=== PATIENT | female | born 1960 | race Caucasian/White ===

== ENCOUNTER 2021-12-16 16:00 | Inpatient (IN) | payer OTHER ==
[2021-12-16 16:22] VITALS: RESP 18; BMI 22.8
[2021-12-16] MEDS ORDERED: ACETAMINOPHEN 1000 MG/100 ML BAG IVPB ONE (16:46)
[2021-12-16] MEDS ORDERED: LORazepam 2 MG/ML SDV VIAL IVPUSH ONE (16:46)
[2021-12-16] MEDS ORDERED: ACETAMINOPHEN INJECTION 100 ML IVPB ONE (17:04)
[2021-12-16] MEDS ORDERED: FOLIC ACID INJECTION - 1 MG, THIAMINE HCL 100 MG, MULTIVIT INJECTION ADULT 10 ML in SOD... IVPB ONE ×2 (17:09→22:27)
[2021-12-16 17:16] LABS: BASO % 0.7 % (0-2.0); EOS % 1.1 % (0-4.5); HEMOGLOBIN 12.8 GM/dL (10.7-15.3); LYMPH % 26.4 % (8-40); MCH 31.7 pg (25.7-33.7); MCHC 33.6 g/dl (32.0-36.0); MEAN CELL VOLUME 94.4 fl (80-96); MEAN PLT VOLUME 7.2 fl (7.5-11.1); NEUT % 62.8 % (42.8-82.8); PLATELET COUNT 203 10^3/uL (134-434); RBC 4.02 M/mm3 (3.60-5.2); RDW 13.5 % (11.6-15.6); WHITE BLOOD COUNT 6.1 K/mm3 (4.0-10.0)
[2021-12-16 17:35] LABS: CHLORIDE 103 mmol/L (98-107); SODIUM 140 mmol/L (136-145)
[2021-12-16 17:38] LABS: CALCIUM 9.2 mg/dL (8.5-10.1)
[2021-12-16 17:39] LABS: ALBUMIN 3.6 g/dl (3.4-5.0); ANION GAP 4 MMOL/L (8-16); BLOOD UREA NITROGEN 8.7 mg/dL (7-18); CO2 34 mmol/L (21-32); GLUCOSE,RANDOM 77 mg/dL (74-106)
[2021-12-16 17:42] LABS: CREATININE 0.6 mg/dL (0.55-1.3); SGOT/AST 27 U/L (15-37); SGPT/ALT 34 U/L (13-61)
[2021-12-16 17:43] LABS: BILIRUBIN,TOTAL 0.3 mg/dL (0.2-1); TOT PROT 6.7 g/dl (6.4-8.2)
[2021-12-16 17:45] LABS: ALK PHOS 66 U/L (45-117)
[2021-12-16 21:03] LABS: MAGNESIUM 2.2 mg/dL (1.8-2.4)
[2021-12-16 21:06] LABS: PHOSPHOROUS 2.8 mg/dL (2.5-4.9)
[2021-12-16] MEDS ORDERED: LORazepam 1 MG TABLET PO PRN (22:25)
[2021-12-16] MEDS ORDERED: cloNIDine HCL 0.1 MG TABLET ONE (23:08)
[2021-12-16] MEDS ORDERED: LORazepam 1 MG TABLET ONE (23:09)
[2021-12-16] MEDS: LORazepam 1 MG TABLET PO SCH (23:11)
[2021-12-16] MEDS: cloNIDine HCL 0.1 MG TABLET PO SCH (23:11)
[2021-12-17] MEDS: DEXTROSE 5%-NORMAL SALINE 1,000 ML IV SCH (04:56)
[2021-12-17] MEDS: LORazepam 1 MG TABLET PO SCH ×4 (04:57→22:17)
[2021-12-17] MEDS ORDERED: DEXTROSE 5%-NORMAL SALINE 1,000 ML IV SCH (06:00)
[2021-12-17] MEDS: cloNIDine HCL 0.1 MG TABLET PO SCH ×3 (06:06→22:17)
[2021-12-17 09:54] LABS: BASO % 0.9 % (0-2.0); EOS % 1.7 % (0-4.5); HEMOGLOBIN 13.4 GM/dL (10.7-15.3); LYMPH % 32.1 % (8-40); MCHC 32.7 g/dl (32.0-36.0); MEAN CELL VOLUME 94.9 fl (80-96); MEAN PLT VOLUME 7.5 fl (7.5-11.1); MONO % 6.8 % (3.8-10.2); NEUT % 58.5 % (42.8-82.8); PLATELET COUNT 212 10^3/uL (134-434); RBC 4.32 M/mm3 (3.60-5.2); RDW 13.6 % (11.6-15.6); WHITE BLOOD COUNT 5.6 K/mm3 (4.0-10.0)
[2021-12-17 10:24] LABS: ALBUMIN 3.1 g/dl (3.4-5.0); MAGNESIUM 2.1 mg/dL (1.8-2.4)
[2021-12-17 10:27] LABS: CREATININE 0.6 mg/dL (0.55-1.3)
[2021-12-17 10:28] LABS: BILIRUBIN,TOTAL 0.4 mg/dL (0.2-1); TOT PROT 5.9 g/dl (6.4-8.2)
[2021-12-17] MEDS: THIAMINE HCL 200 MG/2 ML VIAL IVPB SCH (10:35)
[2021-12-17] MEDS: FOLIC ACID 1 MG TABLET (FP) PO SCH (10:36)
[2021-12-17] MEDS: ENOXAPARIN NA (PORCINE) 40 MG/0.4 ML DISP.SYRIN SQ SCH (10:38)
[2021-12-18] MEDS: DEXTROSE 5%-NORMAL SALINE 1,000 ML IV SCH ×2 (05:20→06:39)
[2021-12-18] MEDS: LORazepam 1 MG TABLET PO SCH ×4 (05:22→22:32)
[2021-12-18] MEDS: cloNIDine HCL 0.1 MG TABLET PO SCH ×3 (06:26→23:07)
[2021-12-18] MEDS: FOLIC ACID 1 MG TABLET (FP) PO SCH (10:09)
[2021-12-18] MEDS: ENOXAPARIN NA (PORCINE) 40 MG/0.4 ML DISP.SYRIN SQ SCH (10:09)
[2021-12-18] MEDS: THIAMINE HCL 200 MG/2 ML VIAL IVPB SCH (10:12)
[2021-12-19] MEDS ORDERED: LORazepam 0.5 MG TABLET PO PRN
[2021-12-19] MEDS: DEXTROSE 5%-NORMAL SALINE 1,000 ML IV SCH ×2 (04:06→05:05)
[2021-12-19] MEDS: LORazepam 0.5 MG TABLET PO SCH ×4 (05:01→22:12)
[2021-12-19] MEDS: cloNIDine HCL 0.1 MG TABLET PO SCH ×3 (06:12→22:12)
[2021-12-19] MEDS: FOLIC ACID 1 MG TABLET (FP) PO SCH (09:17)
[2021-12-19] MEDS: ENOXAPARIN NA (PORCINE) 40 MG/0.4 ML DISP.SYRIN SQ SCH (09:17)
[2021-12-19] MEDS: THIAMINE HCL 200 MG/2 ML VIAL IVPB SCH (09:18)
[2021-12-19 10:32] LABS: HEMATOCRIT 41.4 % (32.4-45.2); HEMOGLOBIN 13.8 GM/dL (10.7-15.3); MCH 31.3 pg (25.7-33.7); MCHC 33.2 g/dl (32.0-36.0); MEAN CELL VOLUME 94.3 fl (80-96); MEAN PLT VOLUME 7.6 fl (7.5-11.1); PLATELET COUNT 236 10^3/uL (134-434); RBC 4.39 M/mm3 (3.60-5.2); RDW 13.4 % (11.6-15.6); WHITE BLOOD COUNT 7.3 K/mm3 (4.0-10.0)
[2021-12-19 10:52] LABS: CHLORIDE 111 mmol/L (98-107); SODIUM 146 mmol/L (136-145)
[2021-12-19 11:02] LABS: ANION GAP 4 MMOL/L (8-16); CALCIUM 9.1 mg/dL (8.5-10.1); CO2 31 mmol/L (21-32); MAGNESIUM 1.9 mg/dL (1.8-2.4)
[2021-12-19 11:03] LABS: ALBUMIN 3.1 g/dl (3.4-5.0)
[2021-12-19 11:05] LABS: PHOSPHOROUS 2.6 mg/dL (2.5-4.9); SGPT/ALT 27 U/L (13-61)
[2021-12-19 11:06] LABS: CREATININE 0.6 mg/dL (0.55-1.3); SGOT/AST 18 U/L (15-37)
[2021-12-19 11:07] LABS: BILIRUBIN,TOTAL 0.3 mg/dL (0.2-1); TOT PROT 5.9 g/dl (6.4-8.2)
[2021-12-19 11:08] LABS: ALK PHOS 59 U/L (45-117); GLUCOSE,RANDOM 49 mg/dL (74-106)
[2021-12-19] MEDS: NICOTINE 21 MG/24 HOURS TOPICAL PATCH TD SCH (11:34)
[2021-12-19] MEDS ORDERED: DEXTROSE 5%-LACTATED RINGERS 1,000 ML IV SCH (13:00)
[2021-12-20] MEDS: DEXTROSE 5%-NORMAL SALINE 1,000 ML IV SCH ×2 (01:40→02:00)
[2021-12-20] MEDS ORDERED: MELATONIN 1 MG TABLET PO SCH (01:45)
[2021-12-20] MEDS ORDERED: LORazepam 0.5 MG TABLET PO ONE (05:00)
[2021-12-20] MEDS: cloNIDine HCL 0.1 MG TABLET PO SCH ×2 (06:22→14:02)
[2021-12-20] MEDS: NICOTINE 21 MG/24 HOURS TOPICAL PATCH TD SCH (10:44)
[2021-12-20] MEDS: THIAMINE HCL 200 MG/2 ML VIAL IVPB SCH (10:44)
[2021-12-20] MEDS: ENOXAPARIN NA (PORCINE) 40 MG/0.4 ML DISP.SYRIN SQ SCH (10:44)
[2021-12-20] MEDS: FOLIC ACID 1 MG TABLET (FP) PO SCH (10:45)
[2021-12-20 11:55] VITALS: BP 140/79; PULSE 56; TEMP 98.7
[2021-12-20 13:07] LABS: CHLORIDE 108 mmol/L (98-107); SODIUM 147 mmol/L (136-145)
[2021-12-20 13:10] LABS: ALBUMIN 3.4 g/dl (3.4-5.0); ANION GAP 7 MMOL/L (8-16); CALCIUM 9.7 mg/dL (8.5-10.1); CO2 33 mmol/L (21-32); MAGNESIUM 2.1 mg/dL (1.8-2.4)
[2021-12-20 13:11] LABS: BLOOD UREA NITROGEN 5.1 mg/dL (7-18)
[2021-12-20 13:13] LABS: BILIRUBIN,TOTAL 0.3 mg/dL (0.2-1); CREATININE 0.5 mg/dL (0.55-1.3); PHOSPHOROUS 2.7 mg/dL (2.5-4.9); SGOT/AST 17 U/L (15-37); SGPT/ALT 27 U/L (13-61)
[2021-12-20 13:15] LABS: ALK PHOS 61 U/L (45-117); GLUCOSE,RANDOM 48 mg/dL (74-106); TOT PROT 6.4 g/dl (6.4-8.2)
[2021-12-20] MEDS ORDERED: DEXTROSE 5%-LACTATED RINGERS 1,000 ML IV SCH (14:30)
== END 2021-12-20 15:22 | disposition home or self-care (01) | DRG 816 ==
LOC: JER 16:00 → JERBED 19:48 → J5S 12-17 03:35
PROVIDERS: ADMIT Internal Medicine; ATTEND Internal Medicine
DX: T40.5X1A Poisoning by cocaine, accidental (unintentional), initial encounter (principal); G92.8 Other toxic encephalopathy; R41.82 Altered mental status, unspecified; R45.1 Restlessness and agitation; R42 Dizziness and giddiness; M79.606 Pain in leg, unspecified; I10 Essential (primary) hypertension; F19.10 Other psychoactive substance abuse, uncomplicated; F10.20 Alcohol dependence, uncomplicated
CPT/HCPCS: 36415; 70450-TC; 71045-TC-FY; 80053; 80307; 82140; 83735; 84100; 84443; 84484; 85025; 85027; 93005; 93010; 99285-25; C9803-CS; U0003; U0005